=== PATIENT | female | born 1965 | race Caucasian/White ===

== ENCOUNTER 2021-08-25 10:54 | Emergency (ER) | payer OTHER, BC ==
[~2021-08-25] VITALS: Ht 162.6 cm; Wt 64.4 kg
[2021-08-25] MEDS ORDERED: 0.9%NACL 1000ML 1,000 ML IV SCH (12:00)
[2021-08-25] MEDS ORDERED: KETOROLAC 15MG/ML VIAL (15MG/ML) IV ONE (12:00)
[2021-08-25] MEDS ORDERED: ONDANSETRON 4MG INJ IVP ONE (12:00)
[2021-08-25] MEDS ORDERED: FAMOTIDINE 20MG VIAL IV ONE (12:00)
[2021-08-25] MEDS ORDERED: DiphenhydrAMINE HCL 50 MG/ML VIAL IV ONE (12:00)
[2021-08-25] MEDS ORDERED: NIRM1TAB5 PO (14:24)
[2021-08-25] MEDS ORDERED: ALBUHFA IH (14:24)
[2021-08-25] MEDS ORDERED: LORA-868 PO (14:24)
[2021-08-25 14:44] VITALS: BP 101/62
== END 2021-08-25 15:01 | disposition home or self-care (01) ==
LOC: EDH 10:54
DX: U07.1 COVID-19 (principal); E03.9 Hypothyroidism, unspecified
CPT/HCPCS: 99284; 96374; 96375; 70450; 87635; 96361; C9803; J1200; J3490; J7030; J2405; J1885